=== PATIENT | female | born 1990 | race Two or more races ===

== ENCOUNTER 2020-07-05 15:20 | Emergency (ER) | payer OTHER ==
[2020-07-05 15:35] VITALS: BP 154/74
--- NOTE | 2020-07-05 16:06 | ED Physician Documentation ---
History of Present Illness - Stated complaint Stated Complaint: STOMACH PAIN - Chief complaint Chief Complaint: General - History obtained from History obtained from: Patient - History of Present Illness Timing: Today Pain level max: 0 Pain level now: 0 - Additonal information Additional information: 29-year-old female presents to the emergency department with diarrhea this morning. She states it was approximately every 30 minutes for the first 4 to 5 hours that she was awake. She states she has not eaten or drink today. Diarrhea is now decreasing. Had mild nausea but no vomiting. No abdominal pain. Nothing makes it better or worse. No fevers. No chills. No recent antibiotics. No recent travel. No one else is sick at home. 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 Review of Systems Constitutional: denies: Fever, Chills Nose: denies: Rhinorrhea / runny nose, Congestion Cardiac: denies: Chest pain / pressure Respiratory: denies: Cough GI: reports: Diarrhea. denies: Abdominal Pain, Hematemesis, Bloody / black stool Skin: denies: Rash Musculoskeletal: denies: Neck pain, Back pain Neurologic: denies: Headache PD PAST MEDICAL HISTORY - Past Medical History Past Medical History: No - Past Surgical History Past Surgical History: No - Present Medications Home Medications: Ambulatory Orders Medication Instructions Recorded Confirmed No Known Home Medications 07/05/20 07/05/20 - Allergies Allergies/Adverse Reactions: Allergies Allergy/AdvReac Type Severity Reaction Status Date / Time No Known Drug Allergies Allergy Verified 07/05/20 15:27 - Living Situation Living Situation: reports: With family Living Arrangement: reports: At home - Social History Does the pt have substance abuse?: No PD ED PE NORMAL - Vitals Vital signs reviewed: Yes - General General: Alert and oriented X 3, No acute distress - HEENT HEENT: Moist mucous membranes - Neck Neck: Supple, no meningeal sign - Cardiac Cardiac: RRR - Respiratory Respiratory: No respiratory distress, Clear bilaterally - Abdomen Abdomen: Soft, Non tender, Non distended - Derm Derm: Warm and dry - Neuro Neuro: Alert and oriented X 3 - Psych Psych: Normal mood, Normal affect Results - Vitals Vitals: Vital Signs - 24 hr 07/05/20 15:24 Temperature 36.0 C L Heart Rate 68 Respiratory 16 Rate Blood Pressure 154/74 H O2 Saturation 96 Oxygen O2 Source Room air PD MEDICAL DECISION MAKING - ED course Complexity details: considered differential, d/w patient ED course: Patient is well-appearing, nontoxic. Afebrile. No hypoxia. No abdominal pain. Likely viral diarrhea. We will have her follow-up with her doctor for further care. Tolerating p.o. without difficulty. Well-hydrated. Patient counseled regarding signs and symptoms for which I believe and urgent re-evaluation would be necessary. Patient with good understanding of and agreement to plan and is comfortable going home at this time This document was made in part using voice recognition software. While efforts are made to proofread this document, sound alike and grammatical errors may occur. Departure - Departure Disposition: 01 Home, Self Care Clinical Impression: Diarrhea Qualifiers: Diarrhea type: unspecified type Qualified Code(s): R19.7 - Diarrhea, unspecified Condition: Good Instructions: ED Diarrhea Viral Follow-Up: your,doctor in 1 week if not better [Other] Comments: This appears to be a viral illness. Follow-up with your doctor for further care as needed. Drink plenty of fluids and rest. Return if you worsen Forms: Activity restrictions
== END 2020-07-05 16:14 | disposition home or self-care (01) ==
LOC: ED 15:20
DX: R19.7 Diarrhea, unspecified (principal); R11.0 Nausea
CPT/HCPCS: 99282; 99284